=== PATIENT | male | born 1935 | race African-American/Black ===

== ENCOUNTER 2017-03-05 11:06 | Day surgery (SDC) | payer MEDICARE, OTHER ==
[~2017-03-05] VITALS: Ht 185.4 cm; Wt 115.0 kg
[~2017-03-05 11:06] MED LIST: ALBU8.5H5 INH; ATOR20TA9 PO; BACL-19 PO; BENZ100C17 PO; CARV3.122 PO; CHOL20002 PO; CLIN60LO2 TP; CYCL100S4 EACHEYE; DIAZ2TAB3 PO; DIAZ5TAB4 PO; DOCU-180 PO; ENOX100S5 SQ; FERR324T8 PO; FLUT1DIS5 IH; FLUT9.9S NS; FURO20TA3 PO; FURO40TA6 PO; GABA300C10 PO; GUAI200T3 PO; HYDR-3245 PO; IPRA3AMP INH; LACT1CAP35 PO; LISI-167 PO; LISI2.5T PO; LOPE2CAP PO; LORA0.5T PO; METH750T2 PO; MULT-658 PO; NITR0.4T28 SL; OMEG1CAP34 PO; PANT40TA5 PO; POTA20TA89 PO; SPIR50TA2 PO; TAMS0.4C2 PO; TERA10CA3 PO; TIOT18CA INH; WARF5TAB PO; WARF5TAB7 PO; [UNRECOGNIZED DRUG - CODE] PO; [UNRECOGNIZED DRUG - OTHER] TP; will bring a list
[2017-03-05] MEDS ORDERED: LACTATED RINGERS 1,000 ML IV SCH (11:20)
[2017-03-05] MEDS ORDERED: CHLORHEXIDINE MOUTHWASH 15 ML UDC ONE (11:45)
[2017-03-05 11:47] VITALS: BP 113/74
[2017-03-05] MEDS ORDERED: MIDAZOLAM 1 MG/ML, 2ML ONE (12:48)
[2017-03-05] MEDS ORDERED: FENTANYL PF 100 MCG/2ML ONE (12:49)
[2017-03-05] MEDS ORDERED: ALBUTEROL SULFATE 200 PUFFS/8.5 GR INH ONE (12:53)
[2017-03-05] MEDS ORDERED: PROPOFOL 10 MG/ML, 20ML ONE (12:53)
[2017-03-05] MEDS ORDERED: ROCURONIUM 10 MG/ML ONE (12:53)
[2017-03-05] MEDS ORDERED: ONDANSETRON 2MG/ML, 2ML IVPush PRN (13:00)
[2017-03-05] MEDS ORDERED: OXYcodone 5 MG/5 ML ORAL.SOL UDC PO PRN (13:00)
[2017-03-05] MEDS ORDERED: ALBUTEROL/IPRATROPIUM 2.5MG/0.5MG, 3 ML NPPB PRN (13:00)
[2017-03-05] MEDS ORDERED: EPHEDRINE 50 MG/ML, 1ML IVPush PRN (13:00)
[2017-03-05] MEDS ORDERED: HYDROmorphone 1 MG/ML, 1ML IV PRN (13:00)
[2017-03-05] MEDS ORDERED: ALBUTEROL SULFATE 2.5 MG/3 ML NPPB PRN (13:00)
[2017-03-05] MEDS ORDERED: ACETAMINOPHEN 325 MG TABLET PO PRN (13:00)
[2017-03-05] MEDS ORDERED: METOPROLOL 1 MG/ML, 5ML IV PRN (13:00)
[2017-03-05] MEDS ORDERED: hydrALAzine 20 MG/ML, 1ML IV PRN (13:00)
[2017-03-05] MEDS ORDERED: LABETALOL 5MG/ML, 20ML IV PRN (13:00)
[2017-03-05] MEDS ORDERED: HYDROcodone/APAP 7.5-325MG/15ML UDC PO PRN (13:00)
[2017-03-05] MEDS ORDERED: FENTANYL PF 100 MCG/2ML IV PRN (13:00)
== END 2017-03-05 16:00 ==
LOC: OUT 11:06
PROVIDERS: ATTEND Internal Medicine Gastroenterology
DX: D3A.00 Benign carcinoid tumor of unspecified site (principal); K21.9 Gastro-esophageal reflux disease without esophagitis; K44.9 Diaphragmatic hernia without obstruction or gangrene; J45.909 Unspecified asthma, uncomplicated; E03.9 Hypothyroidism, unspecified; N40.0 Benign prostatic hyperplasia without lower urinary tract symptoms; I25.10 Atherosclerotic heart disease of native coronary artery without angina pectoris; Z87.39 Personal history of other diseases of the musculoskeletal system and connective tissue; Z95.5 Presence of coronary angioplasty implant and graft
CPT/HCPCS: 43236; 43237; J2250; J2704; J3010; J7120